=== PATIENT | male | born 1960 | race Caucasian/White ===

== ENCOUNTER → 2018-06-27 | Outpatient (CLI) | payer BC ==
--- NOTE | 2018-06-27 09:02 | DIAGNOSTIC IMAGING REPORT ---
PELVIS WITHOUT CONTRAST (MRI) HISTORY: Right hamstring pain. HAMSTRING EVULSION TECHNIQUE: Multiplanar multisequence MRI of the pelvis performed without the use of intravenous contrast. COMPARISON STUDY: Pelvis radiograph 06/24/2018. FINDINGS: There is edema and hemorrhage both within and surrounding the proximal semitendinosus and biceps femoris muscles. This is consistent with a grade II muscular strain. There is a full-thickness tear at the common origin of the long head of the biceps femoris and semimembranosus tendon at the ischial tuberosity. This common tendon is retracted up to 3.5 cm. No bony fragment identified. There is mild edema seen within the semimembranosus tendon consistent with a partial tear. No fracture or dislocation within the pelvis or hips. Subcutaneous edema within the proximal posterior thigh. Small left hydrocele. IMPRESSION: 1. A full-thickness tear at the common origin of the long head of the biceps femoris and semimembranosus tendon at the right ischial tuberosity which is retracted up to 3.5 cm. 2. Partial tear within the right proximal semimembranosus tendon. 3. No fracture or dislocation within the pelvis or hips. 4. Grade II muscular strain within the right proximal biceps femoris and semitendinosus muscles. Electronically signed by: Felipe Nguyễn M.D. 06/27/2018 9:01 AM Dictated Date/Time: 06/27/2018 8:37 AM
== END | disposition home or self-care (01) ==
LOC: C.MRIBC 07:32
PROVIDERS: ATTEND Orthopaedic Surgery Sports Medicine
DX: S76.312A Strain of muscle, fascia and tendon of the posterior muscle group at thigh level, left thigh, initial encounter (principal); X58.XXXA Exposure to other specified factors, initial encounter

== ENCOUNTER 2021-01-01 10:07 | Inpatient (IN) ==
--- OUTSIDE RECORDS SUMMARY | 2021-01-01 10:09 | External Medical Summary | Continuity of Care Document ---
:1960 Author Name Diana Machuca, Provider Address Unavailable Unavailable , Care Team Providers Name Role Phone Norah Machuca, Julio Unavailable [email or web address], [email or web address] Unavailable Unavailable Problems Herniated Disc (L3 - L4) (012.10) Allergies and Adverse Reactions Allergy history not documented Medications Medications not documented Procedures Procedures not documented Immunizations Immunizations not documented Plan of Treatment Planned Observations Planned Goals not documented Results No Known Results Results not documented
--- OUTSIDE RECORDS SUMMARY | 2021-01-01 10:10 | External Medical Summary | Continuity of Care Document ---
:1960 Author Name Diana Machuca, Provider Address Unavailable Unavailable , Care Team Providers Name Role Phone Norah Machuca, Julio Unavailable [email or web address] [email or web address], [email or web address] Unavailable Unavailable Problems Herniated Disc (L3 - L4) (542.10) Allergies and Adverse Reactions Allergy history not documented Medications Medications not documented Procedures Procedures not documented Immunizations Immunizations not documented Plan of Treatment Planned Observations Planned Goals not documented Results No Known Results Results not documented
[2021-01-01] MEDS ORDERED: Heparin IV Adult Wt-Based Standard WITH Bolus Protocol IV STA (10:22)
--- NOTE | 2021-01-01 10:22 | Emergency Department Note ---
History of Present Illness General Chief complaint: Cardiac Assessment Stated complaint: AFIB Time Seen by Provider: 01/01/21 10:14 Source: patient Mode of arrival: ambulatory Limitations: no limitations History of Present Illness Provider complaint: New onset A. fib Maximum Pain Intensity: 0 This is a 61-year-old male who presents to the ED with a chief complaint of new onset A. fib. The patient states that he went to his PCPs office for routine 6- month checkup and was found to be in A. fib with RVR. The patient did not realize that he was in it. He is reporting exertional dyspnea for the past few weeks. He thought it was related to having Covid. He had Covid a few weeks ago. The patient denies any chest pains. No nausea vomiting. Denies any other complaints at this time. Home Medications Medication Instructions Recorded Confirmed Type fluoxetine 20 mg PO DAILY 01/01/21 01/01/21 History lisinopril 10 mg PO DAILY 01/01/21 01/01/21 History Allergies Allergy/AdvReac Type Severity Reaction Status Date / Time No Known Allergies Allergy Unverified 01/01/21 11:08 Past Med/Surg History Social History Smoking Status: Unknown if ever smoked Preferred Language: Irish Feels Safe at Home: Yes Review of Systems A total of 10 systems reviewed and were otherwise negative Physical Exam Vital Signs Vital Signs - 24 hr 01/01/21 10:10 01/01/21 10:26 01/01/21 10:55 Temperature 36.5 C Temperature Source Temporal Artery Scan Pulse Rate 88 143 H 126 H Pulse Rate [Right Finger] 118 H Pulse Rhythm [Right Finger] Pulse Strength [Right Finger] Respiratory Rate 18 16 Respiratory Effort / Characteristics Short of Breath Non-Labored Respiratory Depth Normal Respiratory Pattern Blood Pressure 187/91 H 157/111 H Blood Pressure [Right Arm] 157/111 H Blood Pressure Mean 123 Blood Pressure Mean [Right Arm] 126 Blood Pressure Position Sitting Blood Pressure Position [Right Arm] Pulse Oximetry 94 97 Oxygen Delivery Method Room Air Room Air Sepsis Recent Fever Within 48 Hours No Sepsis New/Unexplained Change in Mental Status N/A Sepsis Action Taken by Nursing No Action Required 01/01/21 11:03 01/01/21 11:38 01/01/21 11:46 Temperature Temperature Source Pulse Rate 114 H Pulse Rate [Right Finger] 106 H 60 Pulse Rhythm [Right Finger] Irregular Regular Pulse Strength [Right Finger] Normal Normal Respiratory Rate 18 20 Respiratory Effort / Characteristics Non-Labored Non-Labored Respiratory Depth Normal Normal Respiratory Pattern Regular Regular Blood Pressure 144/96 H Blood Pressure [Right Arm] 142/91 H 152/95 H Blood Pressure Mean Blood Pressure Mean [Right Arm] 108 114 Blood Pressure Position Blood Pressure Position [Right Arm] Sitting Pulse Oximetry 92 96 Oxygen Delivery Method Room Air Room Air Sepsis Recent Fever Within 48 Hours Sepsis New/Unexplained Change in Mental Status Sepsis Action Taken by Nursing CONSTITUTIONAL/VITAL SIGNS: Reviewed / noted above. GENERAL: Non-toxic in appearance. INTEGUMENTARY: Warm, dry, and [place]. HEAD: Normocephalic. EYES: without scleral icterus or trauma. ENT/OROPHARYNX: clear and moist. LYMPHADENOPATHY/NECK: Is supple without lymphadenopathy or meningismus. RESPIRATORY: Lungs clear and equal. CARDIOVASCULAR: Rapid rate irregular rhythm. GI/ABDOMEN: Soft and nontender. No organomegaly or pulsatile mass. No rebound or guarding. Normal bowel sounds. EXTREMITIES: Warm and well perfused. BACK: No CVA tenderness. NEUROLOGICAL: Intact without focal deficits. PSYCHIATRIC: normal affect. MUSCULOSKELETAL: Normally developed with good muscle tone. TRIAGE NURSING DOCUMENTATION REVIEWED. Course Administered Medications Metoprolol Tartrate (Metoprolol Tartrate 1 Mg/Ml Vial) 5 mg IV Q5M PRN PRN Reason: Tachycardia Stop: 01/31/21 10:17 Last Admin: 01/01/21 11:38 Dose: 5 mg Documented by: [id number] Admin: 01/01/21 10:55 Dose: 5 mg Documented by: [id number] Discontinued Medications Sodium Chloride (Nss) 500 mls @ 999 mls/hr IV .Q31M CHAD Stop: 01/01/21 11:00 Last Infusion: 01/01/21 11:33 Dose: 0 mls/hr Documented by: [id number] Admin: 01/01/21 11:02 Dose: 999 mls/hr Documented by: [id number] Ioversol (Optiray 320 125ml) 118 ml IV ONCE ONE Stop: 01/01/21 11:24 Last Admin: 01/01/21 11:24 Dose: 118 ml Documented by: [id number] Medical Decision Making Differential Diagnosis The differential that was considered includes acute myocardial infarction, acute coronary syndrome, myocarditis, pericarditis, pericardial effusions /tamponade, esophageal perforation, thoracic aortic dissection, pulmonary embolism, pneumonia, pneumothorax, pancreatitis, shingles, acute cholecystitis, perforated abdominal viscus. Medical Records Attestation: I reviewed the patient's medical records. Home Medications Current Medication List: was personally reviewed by me Laboratory Data Attestation: I reviewed the patient's lab results. Result diagrams: 01/01/21 10:34 01/01/21 10:34 Lab Results 01/01/21 01/01/21 01/01/21 Range/Units 10:34 10:34 10:34 WBC 6.12 (4.8-10.8) K/uL RBC 5.20 (4.7-6.1) M/uL Hgb 14.9 (14.0-18.0) g/dL Hct 42.5 (42-52) % MCV 81.7 (80-100) fL MCH 28.7 (25-34) pg MCHC 35.1 (32-36) g/dL RDW Std Deviation 38.6 (36.4-46.3) fL RDW Coeff of Vilma 12.9 (11.5-14.5) % Plt Count 303 (130-400) K/uL MPV 10.6 H (7.4-10.4) fL Immature Gran % (Auto) 0.2 % Neut % (Auto) 67.0 % Lymph % (Auto) 23.7 % [place] % (Auto) 7.2 % Eos % (Auto) 1.6 % Baso % (Auto) 0.3 % Neut # (Auto) 4.10 (1.4-6.5) K/uL Lymph # (Auto) 1.45 (1.2-3.4) K/uL [place] # (Auto) 0.44 (0.11-0.59) K/uL Eos # (Auto) 0.10 (0-0.5) K/uL Baso # (Auto) 0.02 (0-0.2) K/uL Immature Gran # (Auto) 0.01 (0.00-0.02) K/uL APTT 23.9 (21.0-31.0) Seconds PTT Ratio 0.9 D-Dimer 610 H* (0-500) ug/L FEU Sodium 140 (136-145) mmol/L Potassium 4.2 (3.5-5.1) mmol/L Chloride 110 H (98-107) mmol/L Carbon Dioxide 25 (21-32) mmol/L Anion Gap 6.0 (3-11) BUN 20 H (7-18) mg/dl Creatinine 1.26 (0.6-1.4) mg/dl Est Cr Clr Drug Dosing 89.6 ml/min Est GFR ( Amer) 70.4 Est GFR (Non-Af Amer) 60.7 BUN/Creatinine Ratio 16.1 (10-20) Glucose 118 H (70-99) mg/dl Calcium 9.0 (8.5-10.1) mg/dl Total Bilirubin 0.5 (0.2-1) mg/dl AST 19 (15-37) U/L ALT 55 (12-78) U/L Alkaline Phosphatase 92 (45-117) U/L Troponin I 0.089 H* (0-0.045) ng/ml Total Protein 7.7 (6.4-8.2) gm/dl Albumin 3.6 (3.4-5.0) gm/dl Globulin 4.1 H (2.5-4.0) gm/dl Albumin/Globulin Ratio 0.9 (0.9-2) Lipase 171 (73-393) U/L Imaging Data Radiologist's Impression: IMPRESSION: 1. Small bilateral pulmonary emboli as above. 2. There is no lobar consolidation or pleural effusion. 3. There are mild patchy nodular opacities present at both lung bases, one of which demonstrate central cavitation. These are likely on an infectious or inflammatory basis. A 3 month follow-up chest CT is recommended to document resolution. 4. Mild diffuse peribronchial thickening suggests bronchitis/reactive airway disease. 5. Mildly enlarged left hilar lymph nodes are likely reactive. ECG Data Attestation: I personally reviewed and interpreted this ECG as follows: Indication: + chest pain Rate (beats per minute): 60 Rhythm: + normal sinus ECG Intervals/blocks: + Normal QT-c ECG ST segments: no ST elevation ECG Findings: no PVCs MDM Narrative Patient presents with new onset A. fib with RVR. Details listed above. Exam was relatively benign other than his rapid irregular heart rate. His blood pressure is noted to be elevated. CBC was normal. D-dimer is slightly elevated. Chemistry panel was normal. Troponin is elevated 0.089. Lipase was negative. The patient was started on IV heparin. He was given some IV fluids. He was given 10 mg of IV push metoprolol. His atrial fibrillation with RVR converted into a normal sinus rhythm during his ED stay. He will be seen by the hospitalist for further evaluation and care. He was treated with IV Lopressor as well as some IV fluids. He was also started on IV heparin. Impression & Plan Atrial fibrillation with RVR, Non-ST elevation (NSTEMI) myocardial infarction, Bilateral pulmonary embolism Discharge Plan Visit Data Chief Complaint: Cardiac Assessment Stated Complaint: AFIB ED Provider: Arslan Valdez Discharge Problem: Atrial fibrillation with RVR, Non-ST elevation (NSTEMI) myocardial infarction, Bilateral pulmonary embolism Patient Disposition: Being Evaluated by Hospitalist Forms Stand Alone Forms: [facility] Prescriptions Prescriptions: No Action lisinopril 10 mg tablet 10 mg PO DAILY RF: 0 fluoxetine 20 mg capsule 20 mg PO DAILY RF: 0 Referrals Referrals: Franc Cason MD [Primary Care Provider] -
[2021-01-01] MEDS ORDERED: SODIUM CHLORIDE 0.9% 500 ML IV SCH (10:30)
--- NOTE | 2021-01-01 10:43 | XRay Report ---
SINGLE VIEW CHEST CLINICAL HISTORY: Atypical chest pain. FINDINGS: 2 AP, portable, upright chest radiographs are compared to study dated 11/06/2014. The heart is top normal for projection. The pulmonary vasculature is noncongested. There is bibasilar atelecta sis. The lungs and pleural spaces are otherwise clear. No pneumothorax is seen. The bony thorax is gr ossly intact. IMPRESSION: No acute cardiopulmonary abnormality. ACT 112: Negative or not required by law. Electronically signed by: Chapo Ocasio M.D. 01/01/2021 10:41 AM
[2021-01-01 10:45] LABS: Basophils # (auto) 0.02 K/uL (0-0.2); Basophils % (auto) 0.3 %; Eosinophils % (auto) 1.6 %; Hematocrit (blood only) 42.5 % (42-52); Hemoglobin 14.9 g/dL (14.0-18.0); Immature Granulocytes # (auto) 0.01 K/uL (0.00-0.02); Immature Granulocytes % (auto) 0.2 %; Lymphocytes # (auto) 1.45 K/uL (1.2-3.4); Lymphocytes % (auto) 23.7 %; Mean Corpuscular Hemoglobin 28.7 pg (25-34); Mean Corpuscular Hgb Conc 35.1 g/dL (32-36); Mean Corpuscular Volume 81.7 fL (80-100); Mean Platelet Volume 10.6 fL (7.4-10.4); Monocytes # (auto) 0.44 K/uL (0.11-0.59); Monocytes % (auto) 7.2 %; Platelet Count 303 K/uL (130-400); RDW Coefficient of Variation 12.9 % (11.5-14.5); RDW Standard Deviation 38.6 fL (36.4-46.3); White Blood Count 6.12 K/uL (4.8-10.8)
[2021-01-01 10:55] LABS: D Dimer 610 ug/L FEU (0-500)
[2021-01-01] MEDS: METOPROLOL TARTRATE 1 MG/ML VIAL IV PRN ×2 (10:55→11:38)
[2021-01-01 11:01] LABS: Albumin Level 3.6 gm/dl (3.4-5.0); BUN Creatinine Ratio 16.1 (10-20); Creatinine Clr Calc Pharmacy 89.6 ml/min; Est GFR (African American) 70.4; Est GFR (Non-African American) 60.7; Potassium 4.2 mmol/L (3.5-5.1)
[2021-01-01 11:11] LABS: Albumin Globulin Ratio 0.9 (0.9-2); Bilirubin,Total 0.5 mg/dl (0.2-1); Globulin 4.1 gm/dl (2.5-4.0); Total Protein 7.7 gm/dl (6.4-8.2); Troponin I 0.089 ng/ml (0-0.045)
[2021-01-01] MEDS ORDERED: OPTIRAY 320 125ml IV ONE (11:23)
[2021-01-01] MEDS ORDERED: HEPARIN SOD (PORCINE) 1000 UNIT/ML ONE (11:34)
[2021-01-01 11:35] LABS: Partial Thromboplastin Ratio 0.9; Partial Thromboplastin Time 23.9 Seconds (21.0-31.0)
--- NOTE | 2021-01-01 11:48 | CT Scan Report ---
CT ANGIOGRAM OF THE CHEST CLINICAL HISTORY: Atypical chest pain. COMPARISON STUDY: Chest x-ray dated 01/01/2021. TECHNIQUE: Following the IV administration of 118 cc of Optiray 320, CT angiogram of the chest was pe rformed from the upper abdomen to the thoracic inlet utilizing the pulmonary embolus protocol. Images are reviewed in the axial, sagittal, and coronal planes. 3-D MIPS images are created and assessed. I V contrast was administered without complication. A dose lowering technique was utilized adhering to the principles of ALARA. CT DOSE: 876.15 mGy.cm FINDINGS: Thyroid: Imaged portions of the thyroid gland are normal in size and attenuation. Thoracic aorta: The thoracic aorta is normal in caliber and demonstrates standard 3-vessel arch anato my. The thoracic aorta is not well opacified. Pulmonary vasculature: The pulmonary trunk is normal in caliber. There is segmental pulmonary embolus within branches of the right middle lobe pulmonary artery seen on image #123 and #130. There is nono cclusive thrombus within the left upper lobar pulmonary artery (axial image #156) which extends into segmental branches of the left upper lobe. There is trace thrombus within the segmental branch of the right upper lobe seen on image #178. Heart: The heart is normal in size and without pericardial effusion. Lungs and pleural spaces: Evaluation of the lung parenchyma is degraded by motion artifact. There is a 7 mm nodular opacity at the right lung base image #14 which demonstrates central cavitation. A 9 mm nodular opacity at the left lung base seen on image #79. Additional minimal irregular airspace opaci ties are seen in the left lower lobe on image #93. There is no lobar consolidation or pleural effusio n. Dependent atelectasis is seen bilaterally. The trachea and central airways are clear. There is mil d diffuse peribronchial thickening. Mediastinum: There is no mediastinal lymphadenopathy. Kristen: Mildly enlarged left hilar nodes measure up to 13 mm in short axis. No right hilar adenopathy i s seen. Axillae: There is no axillary lymphadenopathy. Upper abdomen: Partially visualized upper abdominal viscera is within normal limits. Skeletal structures: No lytic or blastic bony lesions are seen. IMPRESSION: 1. Small bilateral pulmonary emboli as above. 2. There is no lobar consolidation or pleural effusion. 3. There are mild patchy nodular opacities present at both lung bases, one of which demonstrate centr al cavitation. These are likely on an infectious or inflammatory basis. A 3 month follow-up chest CT is recommended to document resolution. 4. Mild diffuse peribronchial thickening suggests bronchitis/reactive airway disease. 5. Mildly enlarged left hilar lymph nodes are likely reactive. ACT 112: Positive. There are findings on this exam that require communication between the performing entity and the patient following Patient Test Result Information Act ([place] Act 112) guidelines. Electronically signed by: Chapo Ocasio M.D. 01/01/2021 11:47 AM
[2021-01-01] MEDS: HEPARIN SODIUM/DEXTROSE 25,000 UNITS/500 ML BAG IV SCH (13:39)
[2021-01-01 14:30] LABS: Magnesium 2.3 mg/dl (1.8-2.4); Thyroid Stimulating Hormone 0.782 uIu/ml (0.300-4.500)
[2021-01-01] MEDS ORDERED: ACETAMINOPHEN 325 MG TAB PO PRN (15:39)
--- NOTE | 2021-01-01 16:02 | History & Physical Report ---
Date of Service January 01, 2021 Assessment & Plan (1) Bilateral pulmonary embolism: -Admit to telemetry -Patient presenting by referral of PCP for evaluation of new onset A. fib with RVR -In the ED, CTA chest shows small bilateral pulmonary embolism. Saturating well on room air -Likely secondary to recent COVID-19 infection -Electrolytes acceptable, TSH WNL -Started on heparin drip in the ED, likely transition to NOAC -Resting echo to evaluate for right heart strain -Lower extremity Dopplers (2) Atrial fibrillation with RVR: -New onset A. fib with RVR discovered today -Likely due to recent COVID-19 infection/bilateral pulmonary embolism -Received metoprolol 5 mg IV x 2 in ED and converted to NSR -On IV heparin drip as above -Start metoprolol tartrate 12.5 mg twice daily -Outpatient cardiology follow-up (3) Elevated troponin: -Troponin 0.089 -Likely due to A. fib RVR/bilateral pulmonary embolism -Continue to cycle cardiac enzymes, check resting echo (4) History of COVID-19: -Tested positive for COVID-19 on 12/13, managed as an outpatient -CT chest shows signs consistent with COVID-19 infection, procalcitonin negative, no indication for antibiotics at this time (5) HTN (hypertension): -BP elevated, may be situational -Continue lisinopril, starting metoprolol as above (6) DVT prophylaxis: -On IV heparin as above Admission and Anticipated Discharge Date Admission Date: January 01, 2021 History of Present Illness Chief Complaint: Sent by PCP Primary Care Provider: Franc Cason MD 60-year-old male with PMH HTN, anxiety, and other problems listed below who presents to the ED by referral of PCP for evaluation of atrial fibrillation with RVR. Patient tested positive for COVID-19 on 12/13. Patient reports relatively mild symptoms with low-grade fever, generalized fatigue, and poor appetite. Patient reports some residual shortness of breath on exertion which she attributed to his COVID-19 infection. Patient was at his PCPs office today for routine follow-up where he was found to be in A. fib with RVR. He was then sent to the ED for further evaluation. Patient denies chest pain or palpitations. No lightheadedness, dizziness, diaphoresis, syncopal events. No abdominal pain, nausea, vomiting, diarrhea. No recent fevers or chills. Denies any urinary symptoms. In the ED, CTA chest shows small bilateral pulmonary emboli. Patient was in A. fib with RVR with rate in 120s. He received metoprolol 5 mg IV x 2 doses and converted to NSR. Patient is saturating well on room air. He was started on heparin drip. Allergies Allergy/AdvReac Type Severity Reaction Status Date / Time No Known Allergies Allergy Unverified 01/01/21 11:08 Home Medications Medication Instructions Recorded Confirmed Type fluoxetine 20 mg PO DAILY 01/01/21 01/01/21 History lisinopril 10 mg PO DAILY 01/01/21 01/01/21 History Past Med/Surg History Medical History Anxiety History of COVID-19 HTN (hypertension) Surgical History H/O inguinal hernia repair x 2 Family History Father Heart disease Social History Smoking Status: Never smoker Hx Alcohol Use: No Hx Substance Use: No Preferred Language: Maltese Communication Ability: Effective Beliefs That Will Affect Care: None Current Living Situation: Spouse Other Information That Helps Us Care for You: No Feels Safe at Home: Yes Safety Concerns: Feels Safe At This Time Assistive Devices: None Review of Systems Review of Systems: ROS per HPI, all other systems reviewed and negative Physical Exam Constitutional: WD/WN, vitals as above Eyes: PERRL, conjunctivae normal, anicteric sclerae ENMT: external ear and nose normal, oropharynx normal Respiratory: normal respiratory effort, lungs clear to auscultation Cardiovascular: Rate/Rhythm: regular rate; + abnormal rhythm (Some irregularity noted that correlates with PACs on monitor) Gastrointestinal (Abdomen): normal bowel sounds, soft, nontender, no hepatosplenomegaly Musculoskeletal: no cyanosis or clubbing, extremities motor strength 5/5 Skin: no rashes, warm and dry Neurologic: PERRL, EOMI, accommodation nl, no face palsy, no dysarthria Psychiatric: A+Ox3, euthymic affect Results & Data Results & Data ([place]) Vital Signs (Past 12 Hours) Vital Signs Temp Pulse Pulse Resp BP BP Pulse Ox 01/01/21 15:40 36.7 C 64 20 189/88 H 98 01/01/21 15:06 61 18 147/74 H 98 01/01/21 14:40 64 20 175/115 H 94 01/01/21 13:30 65 16 153/96 H 98 01/01/21 12:53 66 18 168/114 H 95 01/01/21 11:46 60 20 152/95 H 96 01/01/21 11:38 114 H 144/96 H 01/01/21 11:03 106 H 18 142/91 H 92 01/01/21 10:55 126 H 157/111 H 01/01/21 10:26 143 H 118 H 16 157/111 H 97 01/01/21 10:10 36.5 C 88 18 187/91 H 94 Laboratory Results Short CBC 01/01/21 Range/Units 10:34 WBC 6.12 (4.8-10.8) K/uL Hgb 14.9 (14.0-18.0) g/dL Hct 42.5 (42-52) % Plt Count 303 (130-400) K/uL BMP 01/01/21 10:34 Sodium 140 Potassium 4.2 Chloride 110 H Carbon Dioxide 25 BUN 20 H Creatinine 1.26 Glucose 118 H Calcium 9.0 Cardiac Enzymes 01/01/21 Range/Units 10:34 Troponin I 0.089 H* (0-0.045) ng/ml Liver Function 01/01/21 Range/Units 10:34 Total Bilirubin 0.5 (0.2-1) mg/dl AST 19 (15-37) U/L ALT 55 (12-78) U/L Alkaline Phosphatase 92 (45-117) U/L Albumin 3.6 (3.4-5.0) gm/dl Diagnostic Findings CTA CHEST IMPRESSION: 1. Small bilateral pulmonary emboli as above. 2. There is no lobar consolidation or pleural effusion. 3. There are mild patchy nodular opacities present at both lung bases, one of which demonstrate central cavitation. These are likely on an infectious or inflammatory basis. A 3 month follow-up chest CT is recommended to document resolution. 4. Mild diffuse peribronchial thickening suggests bronchitis/reactive airway disease. 5. Mildly enlarged left hilar lymph nodes are likely reactive. CXR IMPRESSION: No acute cardiopulmonary abnormality. Code Status & VTE Plan Code Status Patient is a full code as per my discussion with him. VTE Prophylaxis Plan VTE Prophylaxis will be ordered: No Supervising Physician Co-Signing Physician Notes Patient is a 60-year-old male with history of hypertension, anxiety disorder and other medical problems presents with history of incidental finding of atrial fibrillation by his PCP. He was recently diagnosed to have Covid infection 2 weeks ago. He admits to have dyspnea on exertion. Denies any chest pain. Please review HPI for complete details of presentation. Is currently saturating well on room air. His blood pressure is elevated while in ED, likely situational. CTA suggestive of small bilateral pulmonary embolus. No obvious lobar consolidation or pleural effusion noted. Also noted findings suggestive of patchy nodular opacities of lung bases bilaterally associated with mild diffuse peribronchial thickening, left hilar lymphadenopathy. Converted to sinus rhythm in ED after IV Lopressor. Also noted mild troponin elevation. On exam patient is obese, no apparent distress, normocephalic atraumatic, lungs are clear to auscultation, decreased breath sounds, S1-S2, no murmur, abdomen soft, nontender, normal bowel sounds, alert, awake, oriented, grossly no focal neurologic deficits. Patient is admitted for management of bilateral pulmonary embolism, new onset atrial fibrillation. Agree with starting IV heparin for anticoagulation for now. Will obtain resting echo. Currently saturating well on room air. Hypercoagulable work-up as outpatient. Start on low-dose metoprolol. On anticoagulation as above. Normal TSH levels. Will recommend follow-up with cardiology as outpatient. Continue to trend troponins. Currently no indication for COVID-19 treatment. Normal procalcitonin levels. Blood pressure persistently elevated, will consider adding additional antihypertensives as needed to control blood pressure. I personally reviewed the record. Patient is interviewed and examined at bedside. Patient's care is coordinated with Pat Calvo MATH TEACHER. Please refer to the documentation above for details of patient's presentation and for discussion of other issues.
[2021-01-01] MEDS ORDERED: METOPROLOL TARTRATE 1 MG/ML VIAL IV PRN (16:45)
[2021-01-01 20:18] LABS: Partial Thromboplastin Ratio 1.8
[2021-01-01 20:23] LABS: Partial Thromboplastin Time 48.2 Seconds (21.0-31.0)
[2021-01-01] MEDS: METOPROLOL TARTRATE 25 MG TAB PO SCH (20:39)
[2021-01-02] MEDS: HEPARIN SODIUM/DEXTROSE 25,000 UNITS/500 ML BAG IV SCH ×3 (02:50→16:16)
--- NOTE | 2021-01-02 06:31 | Electrocardiogram Report ---
Test Reason : Blood Pressure : / mmHG Vent. Rate : 060 BPM Atrial Rate : 060 BPM P-R Int : 144 ms QRS Dur : 062 ms QT Int : 396 ms P-R-T Axes : 028 050 051 degrees QTc Int : 396 ms Normal sinus rhythm Normal ECG When compared with ECG of 06-NOV-2014 15:23, No significant change was found Confirmed by Rick Cui ([id number]) on 01/02/2021 6:31:07 AM Referred By: REFERRED SELF Confirmed By:Rick Cui
[2021-01-02 06:45] LABS: Hematocrit (blood only) 39.6 % (42-52); Hemoglobin 13.6 g/dL (14.0-18.0); Mean Corpuscular Hemoglobin 28.3 pg (25-34); Mean Corpuscular Hgb Conc 34.3 g/dL (32-36); Mean Corpuscular Volume 82.5 fL (80-100); Mean Platelet Volume 10.6 fL (7.4-10.4); Platelet Count 286 K/uL (130-400); RDW Standard Deviation 38.8 fL (36.4-46.3); White Blood Count 6.12 K/uL (4.8-10.8)
[2021-01-02 06:57] LABS: Partial Thromboplastin Ratio 1.6
[2021-01-02 07:20] LABS: BUN Creatinine Ratio 12.5 (10-20); Creatinine Clr Calc Pharmacy 87.6 ml/min; Est GFR (African American) 69.1; Est GFR (Non-African American) 59.6; Potassium 4.2 mmol/L (3.5-5.1)
[2021-01-02] MEDS: FLUoxetine HCL 20 MG CAP PO SCH (08:05)
[2021-01-02] MEDS: lisinopril 10 MG TAB PO SCH (08:05)
[2021-01-02] MEDS: METOPROLOL TARTRATE 25 MG TAB PO SCH ×2 (08:05→20:08)
--- NOTE | 2021-01-02 09:37 | Ultrasound Report ---
US venous doppler LE BI CLINICAL HISTORY: Acute bilateral pulmonary embolism. COMPARISON STUDY: 02/03/2014 FINDINGS: Real-time and color flow Doppler imaging were performed. Flow was seen within the femoral, popliteal and calf veins with no intraluminal thrombus demonstrated. The saphenous vein is patent. IMPRESSION: No evidence of lower extremity DVT. ACT 112: Negative or not required by law. Electronically signed by: Tom Shelton M.D. 01/02/2021 9:36 AM
[2021-01-02 13:14] LABS: Partial Thromboplastin Ratio 1.6; Partial Thromboplastin Time 41.9 Seconds (21.0-31.0)
--- NOTE | 2021-01-02 16:31 | Hospitalist Progress Note ---
Date of Service January 02, 2021 Assessment & Plan (1) Bilateral pulmonary embolism: Acute bilateral pulmonary embolism -Likely secondary to recent COVID infection -CTA:Small bilateral pulmonary emboli as above. There is no lobar consolidation or pleural effusion. There are mild patchy nodular opacities present at both lung bases, one of which demonstrate central cavitation. These are likely on an infectious or inflammatory basis. A 3 month follow-up chest CT is recommended to document resolution. Mild diffuse peribronchial thickening suggests bronchitis/reactive airway disease. Mildly enlarged left hilar lymph nodes are likely reactive. -Venous Doppler:No evidence of lower extremity DVT. -Saturating well on room air -Continue IV heparin -ECHO pending - Hypercoagulable work up as outpatient -Consider starting on newer anticoagulants as able (2) Atrial fibrillation with RVR: New onset A. fib with RVR Normal TSH Converted to Sinus Continue IV heparin Started on Metoprolol 12.5MG BID Monitor electrolytes and replace as needed Needs follow up with Cardiology upon discharge (3) Elevated troponin: Mild Troponin Elevation Likely secondary to demand Ischemia due to A.fib/PE ECHO pending Patient denies chest pain (4) History of COVID-19: Incidentally noted nodular opacity with central cavitation on CT Tested positive for COVID-19 on 12/[address] outpatient [address] chest shows signs consistent with COVID-19 infection Procalcitonin negative No indication for antibiotics currently Needs repeat Imaging as outpatient in 3 months to document resolution (5) HTN (hypertension): Continue lisinopril, metoprolol Monitor (6) DVT prophylaxis: On IV heparin CODE STATUS Full code Disposition Expected discharge home when medically stable Admission and Anticipated Discharge Date Admission Date: January 01, 2021 Subjective Patient is seen and examined at bedside States feeling well today Denies chest pain, dyspnea, dizziness, nausea, vomiting, abdominal pain On IV heparin GGT Denies any bleeding issues Updated patient's family over the phone Offers no other complaints Review of Systems Review of Systems: All systems reviewed & are unremarkable except as noted in HPI & below Physical Exam Physical Exam: Physical Exam: Vitals signs as noted above General Appearance:Obese, no apparent distress Head: normocephalic, Atraumatic Eyes: normal inspection, EOMI Neck: supple, Trachea midline Respiratory/Chest: Decreased breath sounds, CTA, No accessory muscle use Cardiovascular: S1, S2, No murmur Abdomen/GI:Soft, Non tender, Bowel sounds present Extremities/Musculoskelatal:normal inspection, no edema Neurologic/Psych:AAOX3, grossly no focal neurological deficits Skin: normal color, warm Results & Data Results & Data ([facility]) Vital Signs (Past 12 Hours) Vital Signs Temp Pulse Pulse Resp BP Pulse Ox 01/02/21 16:16 36.7 C 66 20 145/81 H 93 01/02/21 15:57 62 01/02/21 11:55 36.6 C 60 18 135/84 95 01/02/21 07:34 36.7 C 68 20 139/80 94 01/02/21 07:00 63 01/02/21 04:59 36.5 C 70 18 130/73 97 Laboratory Results Short CBC 01/02/21 Range/Units 06:09 WBC 6.12 (4.8-10.8) K/uL Hgb 13.6 L (14.0-18.0) g/dL Hct 39.6 L (42-52) % Plt Count 286 (130-400) K/uL BMP 01/02/21 06:09 Sodium 141 Potassium 4.2 Chloride 107 Carbon Dioxide 27 BUN 16 Creatinine 1.28 Glucose 126 H Calcium 9.0 Cardiac Enzymes 01/01/21 01/01/21 Range/Units 16:16 21:47 Troponin I 0.090 H* 0.069 H* (0-0.045) ng/ml
[2021-01-02 20:20] LABS: Partial Thromboplastin Ratio 1.6; Partial Thromboplastin Time 41.2 Seconds (21.0-31.0)
[2021-01-03] MEDS ORDERED: METOPROLOL TARTRATE 25 MG TAB PO SCH
[2021-01-03 02:54] LABS: Partial Thromboplastin Ratio 1.9
[2021-01-03 02:56] LABS: Partial Thromboplastin Time 49.8 Seconds (21.0-31.0)
[2021-01-03] MEDS: HEPARIN SODIUM/DEXTROSE 25,000 UNITS/500 ML BAG IV SCH (03:34)
--- NOTE | 2021-01-03 05:12 | Electrocardiogram Report ---
Test Reason : Blood Pressure : / mmHG Vent. Rate : 115 BPM Atrial Rate : 150 BPM P-R Int : 000 ms QRS Dur : 064 ms QT Int : 316 ms P-R-T Axes : 000 027 021 degrees QTc Int : 437 ms Atrial fibrillation with rapid ventricular response with premature ventricular or aberrantly conducte d complexes Abnormal ECG When compared with ECG of 06-NOV-2014 15:23, Atrial fibrillation has replaced Sinus rhythm Confirmed by Rick Cui ([id number]) on 01/03/2021 5:12:15 AM Referred By: REFERRED SELF Confirmed By:Rick Cui
--- NOTE | 2021-01-03 05:50 | Electrocardiogram Report ---
Test Reason : Blood Pressure : / mmHG Vent. Rate : 061 BPM Atrial Rate : 061 BPM P-R Int : 148 ms QRS Dur : 078 ms QT Int : 428 ms P-R-T Axes : 012 028 039 degrees QTc Int : 430 ms Normal sinus rhythm Normal ECG When compared with ECG of 01-JAN-2021 11:52, No significant change was found Confirmed by Rick Cui ([id number]) on 01/03/2021 5:50:10 AM Referred By: REFERRED SELF Confirmed By:Rick Cui
[2021-01-03 06:15] LABS: Estimated Average Glucose 146 mg/dl; Hemoglobin A1C 6.7 % (4.5-5.6)
[2021-01-03 06:32] LABS: Hematocrit (blood only) 39.6 % (42-52); Hemoglobin 13.5 g/dL (14.0-18.0); Mean Corpuscular Hemoglobin 28.2 pg (25-34); Mean Corpuscular Hgb Conc 34.1 g/dL (32-36); Mean Corpuscular Volume 82.7 fL (80-100); Mean Platelet Volume 10.7 fL (7.4-10.4); Platelet Count 283 K/uL (130-400); RDW Coefficient of Variation 13.2 % (11.5-14.5); RDW Standard Deviation 39.6 fL (36.4-46.3); Red Blood Count 4.79 M/uL (4.7-6.1); White Blood Count 5.51 K/uL (4.8-10.8)
[2021-01-03 07:03] LABS: BUN Creatinine Ratio 11.9 (10-20); Calcium 9.2 mg/dl (8.5-10.1); Creatinine Clr Calc Pharmacy 82.8 ml/min; Est GFR (African American) 64.8; Est GFR (Non-African American) 55.9
[2021-01-03] MEDS: lisinopril 10 MG TAB PO SCH (08:28)
[2021-01-03] MEDS: FLUoxetine HCL 20 MG CAP PO SCH (08:28)
[2021-01-03] MEDS: METOPROLOL TARTRATE 25 MG TAB PO SCH (08:28)
[2021-01-03] MEDS ORDERED: APIXABAN 5 MG TABLET PO SCH ×2 (11:00)
--- NOTE | 2021-01-03 12:14 | Hospitalist Progress Note ---
Date of Service January 03, 2021 Assessment & Plan (1) Bilateral pulmonary embolism: Acute bilateral pulmonary embolism -Likely secondary to recent COVID infection -CTA:Small bilateral pulmonary emboli as above. There is no lobar consolidation or pleural effusion. There are mild patchy nodular opacities present at both lung bases, one of which demonstrate central cavitation. These are likely on an infectious or inflammatory basis. A 3 month follow-up chest CT is recommended to document resolution. Mild diffuse peribronchial thickening suggests bronchitis/reactive airway disease. Mildly enlarged left hilar lymph nodes are likely reactive. -Venous Doppler:No evidence of lower extremity DVT. -Saturating well on room air -Continue IV heparin>> transition to Eliquis as per patient's preference -ECHO: Normal LV chamber size with mild concentric LVH. Normal LV systolic function without regional wall motion abnormality. EF 60 to 65%. Grade 1 diastolic dysfunction. No significant valvular pathology. Normal left atrial size. - Hypercoagulable work up as outpatient (2) Atrial fibrillation with RVR: New onset A. fib with RVR Normal TSH Converted to Sinus Continue IV heparin Started on Metoprolol 12.5MG BID Monitor electrolytes and replace as needed Needs follow up with Cardiology upon discharge Remains in Sinus (3) Elevated troponin: Mild Troponin Elevation Likely secondary to demand Ischemia due to A.fib/PE ECHO pending Patient denies chest pain (4) History of COVID-19: Incidentally noted nodular opacity with central cavitation on CT Tested positive for COVID-19 on 12/[address] an outpatient [address] chest shows signs consistent with COVID-19 infection Procalcitonin negative No indication for antibiotics currently Needs repeat Imaging as outpatient in 3 months to document resolution (5) HTN (hypertension): Continue lisinopril, metoprolol Monitor (6) DVT prophylaxis: On IV heparin CODE STATUS Full code Disposition Expected discharge home when medically stable Admission and Anticipated Discharge Date Admission Date: January 01, 2021 Subjective Patient is seen and examined at bedside No new complaints Denies any bleeding issues Also denies chest pain, dyspnea, dizziness, nausea, vomiting, abdominal pain IV heparin transitioned to eliquis Discussed with patient's family over the phone Review of Systems Review of Systems: All systems reviewed & are unremarkable except as noted in HPI & below Physical Exam Physical Exam: Physical Exam: Vitals signs as noted above General Appearance:Obese, no apparent distress Head: normocephalic, Atraumatic Eyes: normal inspection, EOMI Neck: supple, Trachea midline Respiratory/Chest: Decreased breath sounds, CTA, No accessory muscle use Cardiovascular: S1, S2, No murmur Abdomen/GI:Soft, Non tender, Bowel sounds present Extremities/Musculoskelatal:normal inspection, no edema Neurologic/Psych:AAOX3, grossly no focal neurological deficits Skin: normal color, warm Results & Data Results & Data ([facility]) Vital Signs (Past 12 Hours) Vital Signs Temp Pulse Pulse Resp BP Pulse Ox 01/03/21 11:51 36.8 C 61 20 160/82 H 94 01/03/21 08:01 36.5 C 62 20 144/82 H 94 01/03/21 07:19 57 L 01/03/21 03:33 36.7 C 64 16 132/80 95 Laboratory Results Short CBC 01/03/21 Range/Units 05:53 WBC 5.51 (4.8-10.8) K/uL Hgb 13.5 L (14.0-18.0) g/dL Hct 39.6 L (42-52) % Plt Count 283 (130-400) K/uL BMP 01/03/21 05:53 Sodium 140 Potassium 4.0 Chloride 105 Carbon Dioxide 29 BUN 16 Creatinine 1.35 Glucose 126 H Calcium 9.2
[2021-01-03] MEDS ORDERED: APIXABAN 5 MG TABLET PO ONE (14:00)
--- NOTE | 2021-01-03 14:13 | Discharge Summary ---
Date of Service January 03, 2021 Admission HPI Per Admitting Provider 60-year-old male with PMH HTN, anxiety, and other problems listed below who presents to the ED by referral of PCP for evaluation of atrial fibrillation with RVR. Patient tested positive for COVID-19 on 12/13. Patient reports relatively mild symptoms with low-grade fever, generalized fatigue, and poor appetite. Patient reports some residual shortness of breath on exertion which she attributed to his COVID-19 infection. Patient was at his PCPs office today for routine follow-up where he was found to be in A. fib with RVR. He was then sent to the ED for further evaluation. Patient denies chest pain or palpitations. No lightheadedness, dizziness, diaphoresis, syncopal events. No abdominal pain, nausea, vomiting, diarrhea. No recent fevers or chills. Denies any urinary symptoms. In the ED, CTA chest shows small bilateral pulmonary emboli. Patient was in A. fib with RVR with rate in 120s. He received metoprolol 5 mg IV x 2 doses and converted to NSR. Patient is saturating well on room air. He was started on heparin drip. Admission Exam Per Admitting Provider Physical Exam Constitutional: WD/WN, vitals as above Eyes: PERRL, conjunctivae normal, anicteric sclerae ENMT: external ear and nose normal, oropharynx normal Respiratory: normal respiratory effort, lungs clear to auscultation Cardiovascular: Rate/Rhythm: regular rate; + abnormal rhythm (Some irregularity noted that correlates with PACs on monitor) Gastrointestinal (Abdomen): normal bowel sounds, soft, nontender, no hepatosplenomegaly Musculoskeletal: no cyanosis or clubbing, extremities motor strength 5/5 Skin: no rashes, warm and dry Neurologic: PERRL, EOMI, accommodation nl, no face palsy, no dysarthria Psychiatric: A+Ox3, euthymic affect Principal Diagnosis Acute bilateral pulmonary embolism Atrial fibrillation with RVR Diabetes mellitus type II Discharge Data Allergies Allergy/AdvReac Type Severity Reaction Status Date / Time No Known Allergies Allergy Unverified 01/01/21 11:08 Consultations 01/01/21 13:01 ED Decision to Admit Stat 01/01/21 15:39 Consult Case Management - Discharge Planning Routine Procedures Performed CTA:Small bilateral pulmonary emboli as above. There is no lobar consolidation or pleural effusion. There are mild patchy nodular opacities present at both lung bases, one of which demonstrate central cavitation. These are likely on an infectious or inflammatory basis. A 3 month follow-up chest CT is recommended to document resolution. Mild diffuse peribronchial thickening suggests bronchitis/reactive airway disease. Mildly enlarged left hilar lymph nodes are likely reactive. Venous Doppler:No evidence of lower extremity DVT. ECHO: Normal LV chamber size with mild concentric LVH. Normal LV systolic function without regional wall motion abnormality. EF 60 to 65%. Grade 1 diastolic dysfunction. No significant valvular pathology. Normal left atrial size. Ordered Studies 01/01/21 10:19 CT angio chest PE protocol Stat 01/02/21 13:49 US venous doppler LE BI Routine Diabetes Follow up Diabetes Follow-up Needed for Newly Diagnosed Diabetes Hospital Course (1) Bilateral pulmonary embolism: Acute bilateral pulmonary embolism -Likely secondary to recent COVID infection -CTA:Small bilateral pulmonary emboli as above. There is no lobar consolidation or pleural effusion. There are mild patchy nodular opacities present at both lung bases, one of which demonstrate central cavitation. These are likely on an infectious or inflammatory basis. A 3 month follow-up chest CT is recommended to document resolution. Mild diffuse peribronchial thickening suggests bronchitis/reactive airway disease. Mildly enlarged left hilar lymph nodes are likely reactive. -Venous Doppler:No evidence of lower extremity DVT. -Saturating well on room air -Continue IV heparin>> transition to Eliquis as per patient's preference -ECHO: Normal LV chamber size with mild concentric LVH. Normal LV systolic function without regional wall motion abnormality. EF 60 to 65%. Grade 1 diastolic dysfunction. No significant valvular pathology. Normal left atrial size. - Hypercoagulable work up as outpatient (2) Atrial fibrillation with RVR: New onset A. fib with RVR Normal TSH Converted to Sinus Continue IV heparin Started on Metoprolol 12.5MG BID Monitor electrolytes and replace as needed Needs follow up with Cardiology upon discharge Remains in Sinus (3) Elevated troponin: Mild Troponin Elevation Likely secondary to demand Ischemia due to A.fib/PE ECHO pending Patient denies chest pain (4) History of COVID-19: Incidentally noted nodular opacity with central cavitation on CT Tested positive for COVID-19 on 12/[address] an outpatient CT chest shows signs consistent with COVID-19 infection Procalcitonin negative No indication for antibiotics currently Needs repeat Imaging as outpatient in 3 months to document resolution (5) HTN (hypertension): Continue lisinopril, metoprolol Monitor (6) DVT prophylaxis: On IV heparin CODE STATUS Full code Disposition Expected discharge home when medically stable Total Time Total Time Spent Total Time Spent (In Minutes): 43 minutes Total Time Includes: Examination of the Patient, Discharge Planning, Medication Reconciliation, Communication With Other Providers and Other Discharge Plan Discharge Items Patient Disposition: Home - Self-Care Reason For Visit: PE, AFIB RVR Discharge Diagnosis: Acute bilateral pulmonary embolism Atrial fibrillation with RVR Diabetes mellitus type II Activity: Per Instructions section Exercise/Sports: Gradually increase as tolerated Non-emergency contact: Primary Care Provider and Band Director Call non-emergency contact if: you have any medication questions, your symptoms worsen, your pain is not controlled, your pain is worsening, your pain is unusual for you, your pain is concerning for you and you have a fever Follow-up/Referrals: Franc Cason MD [Primary Care Provider] - (Date & Time 01/06/2021 10:40 AM Provider Franc Cason MD Department [facility] ) Diet: Carb Consistent or DM2 and Heart Healthy Addtl Attending Provider Instructions: Follow-up with your primary care physician Dr. 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 Discuss with your physician regarding Diabetes Mellitus and possible need for starting on medications Start taking Eliquis (Apixaban) 10mg twice a day for 7 days and then 5mg twice a day. Your duration of anticoagulation to be determined by your Primary Care physician. Seek immediate medical attention if your symptoms reoccur or worsen Pending Studies at Discharge: No Stand-Alone Forms: [facility] [employer], Smoking Cessation Medications and DC Order Prescriptions: New metoprolol tartrate 25 mg Tablet 12.5 mg PO BID Qty: 60 RF: 0 Eliquis 5 mg tablet 5 mg PO UD Qty: 74 RF: 1 Continued lisinopril 10 mg tablet 10 mg PO DAILY RF: 0 fluoxetine 20 mg capsule 20 mg PO DAILY RF: 0 Discharge Orders: Discharge Order (Routine); Ordered 01/03/21 Ordered By: Morris Booker/Other Patient Handouts: Pulmonary Embolism, Managing Type 2 Diabetes, Exercise to Manage Your Blood Sugar, 5 Steps for Eating Healthier, Embolism Pulmonary Dc, Understanding Type 2 Diabetes, A1C Admission Data Admit Date/Time: 01/01/21 13:33 Attending Provider: Morris Lema Admit Provider: Morris Lema Primary Care Provider: Franc Cason Other Providers: Morris Lema Other Interventions: Discharge Summary Assessment (RN) Last Done: 01/03/21 13:13
--- NOTE | 2021-01-04 05:56 | Electrocardiogram Report ---
Test Reason : Blood Pressure : / mmHG Vent. Rate : 061 BPM Atrial Rate : 061 BPM P-R Int : 156 ms QRS Dur : 068 ms QT Int : 422 ms P-R-T Axes : 012 031 042 degrees QTc Int : 424 ms Normal sinus rhythm Normal ECG When compared with ECG of 02-JAN-2021 15:00, No significant change was found Confirmed by Rick Cui ([id number]) on 01/04/2021 5:56:17 AM Referred By: REFERRED SELF Confirmed By:Rick Cui
--- NOTE | 2021-01-14 08:29 | Coding Query ---
CODING QUERY To promote full compliance with coding requirements relating to patient care, provider participation is requested in all cases of [employer] manufacturing consultant uncertainty. Please assist us with the question(s) below: Coding Question(s): Per documentation, patient has Acute bilateral pulmonary embolism likely secondary to recent COVID infection. Please clarify below: ( ) Patient still had COVID during stay ( x) Patient had a History of COVID during stay ( ) Other Please Explain: Thank you Henry Huff Principal Diagnosis: "that condition established after study, to be chiefly responsible for occasioning the admission of the patient to the hospital for care." Co-Existing Principal Diagnosis: "when two or more diagnoses equally meet the criteria for principal diagnosis as determined by the circumstances of admission, diagnostic work up, and/or therapy provided, and the Alphabetic Index, Tabular List, or another coding guideline does not provide sequencing direction, any one of the diagnoses may be sequenced first." "When the physician has documented what appears to be a current diagnosis in the body of the record, but has not included the diagnosis in the final diagnostic statement, the physician should be asked whether the diagnosis should be added." (Source Coding [facility] 2 QTR90. p3-4) SIMONA
== END 2021-01-03 14:52 | disposition home or self-care (01) | DRG 308 ==
LOC: ED 10:07 → 2S 13:33